=== PATIENT | female | born 1950 | race African-American/Black ===

== ENCOUNTER 2018-03-09 15:23 | Inpatient (IN) | payer OTHER ==
--- NOTE | 2018-03-09 17:26 | PDOC ---
History of Present Illness - General History Source: Patient Exam Limitations: No Limitations - History of Present Illness Initial Comments: 03/09/18 18:22 The patient is a 67 year old female with a significant past medical history of diabetes, glaucoma, and ulcers (6-7 years) who presents to the emergency department today for evaluation of bilateral lower extremity ulcers. The patient reports a 5 month history of unresolved right foot ulcer. She reports her ulcers usually heal well, but notes the ulcer on right foot has not healed even after intervention with antibiotics. Patient reports she noticed a mal odor and pus drainage 2 weeks ago prompting her to schedule an appointment with a specialist. The patient reports having her foot ulcers seen by Dr. Webster ([facility]) today and was advised to visit the emergency department for further evaluation. The patient denies pain to the aforementioned area, chest pain, shortness of breath, headache, and dizziness. Denies fever, chills, nausea, vomiting, and any bowel/urinary symptoms. Allergies: NKDA Social History: No reported alcohol, cigarette, or drug use. PCP: Dr. Tobias <Araceli Reyes - Last Filed: 03/09/18 18:45> <Siddhartha Duron - Last Filed: 03/12/18 10:47> - General Chief Complaint: Wound Stated Complaint: RT FOOT WOUND (WC SENT) Time Seen by Provider: 03/09/18 16:33 Past History <Araceli Reyes - Last Filed: 03/09/18 18:45> - Past Medical History COPD: No Diabetes: Yes - Suicide/Smoking/Psychosocial Hx Smoking History: Never smoked Have you smoked in the past 12 months: No Information on smoking cessation initiated: No Hx Alcohol Use: No Drug/Substance Use Hx: No Substance Use Type: None <Siddhartha Duron - Last Filed: 03/12/18 10:47> - Past Medical History Allergies/Adverse Reactions: Allergies Allergy/AdvReac Type Severity Reaction Status Date / Time No Known Allergies Allergy Verified 03/09/18 15:49 Home Medications: Ambulatory Orders Dorzolamide HCl [Trusopt] 10 ml 03/10/18 Empagliflozin [Jardiance] 10 mg PO DAILY 03/10/18 Gentamicin 0.3% Eye Drops - 1 drop OP HS 03/10/18 Glyburide 5 mg PO BID 03/10/18 Insulin Glargine,Hum.rec.anlog [Lantus] 35 units BID 03/10/18 Losartan Potassium 25 mg PO DAILY 03/10/18 Peg 400/Hypromellose/Glycerin [Artificial Tears Drops] 15 ml OP HS 03/10/18 Prednisolone 1% Ophthalmic [Pred Forte 1% -] 1 ml OP DAILY 03/10/18 Review of Systems - Review of Systems Able to Perform ROS?: Yes Comments:: A complete review of 10 out of 10 review of systems is taken and is negative apart from what is previously mentioned below and in the HPI. <Araceli Reyes - Last Filed: 03/09/18 18:45> *Physical Exam - Vital Signs Last Vital Signs Temp Pulse Resp BP Pulse Ox 98.6 F 80 16 131/68 98 03/09/18 15:40 03/09/18 15:40 03/09/18 15:40 03/09/18 15:40 03/09/18 15:40 - Physical Exam Comments: Vitals: Triage Vital signs reviewed General Appearance: no acute distress, well nourished well developed, Head: Atraumatic, normocephalic Eyes: (+)Injected right eye. Pupils equal reactive round, extraocular movement intact Neck: Supple Chest Wall: Nontender Cardiac: Regular rate and rhythm, no murmurs, no rubs, no gallops, Lungs: Clear to auscultation bilateral, good air movement bilaterally, Abdomen: Soft, nondistended, nontender to palpation Extremities: (+)3x3cm ulcer at base of right foot. (+)3cm ulcer at base of 4th digit of right foot. (+)small 2x3cm ulcer on left foot. Skin: Warm and dry, no rashes or lesions, no petechiae Psych: normal mood, normal affect <Araceli Reyes - Last Filed: 03/09/18 18:45> - Vital Signs Last Vital Signs Temp Pulse Resp BP Pulse Ox 98.6 F 80 16 131/68 98 03/09/18 15:40 03/09/18 15:40 03/09/18 15:40 03/09/18 15:40 03/09/18 15:40 <Siddhartha Duron - Last Filed: 03/12/18 10:47> ED Treatment Course - LABORATORY CBC & Chemistry Diagram: 03/10/18 06:50 03/10/18 06:50 <Siddhartha Duron - Last Filed: 03/12/18 10:47> Medical Decision Making - Medical Decision Making The patient is a 67 year old female with a significant past medical history of diabetes, glaucoma, and ulcers (6-7 years) who presents to the emergency department today for evaluation of bilateral lower extremity ulcers. Plan: Chest X-Ray Left Foot X-Ray Right Foot X-Ray EKG Labs <Araceli Reyes - Last Filed: 03/09/18 18:45> - Medical Decision Making Patient sent to the emergency department for admission for IV antibiotics for right foot diabetic ulcer Labs ESR CRP x-rays and broad-spectrum antibiotic have been ordered Labs are pending. Hospitalist aware of case. to update hospitalist when labs return <Siddhartha Duron - Last Filed: 03/12/18 10:47> *DC/Admit/Observation/Transfer - Attestations Scribe Attestion: Documentation prepared by Araceli Reyes, acting as electromedical equipment technician for Siddhartha Duron MD. <Araceli Reyes - Last Filed: 03/09/18 18:45> - Discharge Dispostion Decision to Admit order: Yes <Siddhartha Duron - Last Filed: 03/12/18 10:47> Diagnosis at time of Disposition: Diabetic foot ulcer Qualifiers: Diabetic foot ulcer location: other Diabetes mellitus type: type 1 Laterality: right Non-pressure ulcer stage: limited to breakdown of skin Qualified Code(s): E10.621 - Type 1 diabetes mellitus with foot ulcer - Discharge Dispostion Disposition: HOME Condition at time of disposition: Fair
[2018-03-09] MEDS ORDERED: VANCOMYCIN 1,000 MG in DEXTROSE 5%-WATER - 250 ML IVPB ONE (17:28)
[2018-03-09] MEDS ORDERED: PIPERACILLIN/TAZOB 3.375 GM 3.375 GM in DEXTROSE 5%-WATER - 50 ML IVPB ONE (17:28)
[2018-03-09] MEDS ORDERED: VANCOMYCIN 1 GRAM (PRE-DOCKED) 1,000 MG/250 ML BAG IVPB ONE (19:19)
--- NOTE | 2018-03-09 20:02 | PN ---
Teaching Attending Note Name of Resident: Jasbir Edward ATTENDING PHYSICIAN STATEMENT I saw and evaluated the patient. I reviewed the resident's note and discussed the case with the resident. I agree with the resident's findings and plan as documented. SUBJECTIVE: Patient is a 67 year old woman with a history of NIDDM, glaucoma, and leg ulcers (6-7 years) who presents to the ER for evaluation of bilateral lower extremity ulcers. The patient reports a 5 month history of unresolved right foot ulcer. She reports her ulcers usually heal well, but notes the ulcer on right foot has not healed even after intervention with antibiotics. Patient reports she noticed a foul odor and pus drainage 2 weeks ago prompting her to schedule an appointment with a specialist. The patient reports having her foot ulcers seen by Dr. Webster ([facility]) today and was advised to go to the ER for further evaluation. OBJECTIVE: Alert and in no distress. Vital Signs Period Temp Pulse Resp BP Sys/Ovalle Pulse Ox Last 24 Hr 98.6 F 80 16 131/68 98 HEENT: No Jaundice, right eye conjuctival injection, PERRLA, EOMI. Normocephalic , atraumatic. External ears are normal and hearing is grossly intact. No nasal discharge. Neck: Supple, nontender. No palpable adenopathy or thyromegaly. No JVD Chest: Good effort. Clear to auscultation and percussion. Heart: Regular. No S3, rub or murmur Abdomen: Not distended, soft, nontender and no HSM. No rebound or guarding. Normoactive bowel sounds. Ext: Peripheral pulses intact. No leg edema. Ulcer at base of right foot and at base of 4th digit of right foot. A smaller ulcer on left foot Skin: Warm and dry. No petechiae, rash or ecchymosis. Neuro: Alert. Oriented x3. CN 2-12 grossly intact. Sensation grossly intact in all four extremities and DTR are symmetric. Home Medications Medication Instructions Recorded Glipizide DAILY 03/09/18 Tradjenta DAILY 03/09/18 Abnormal Lab Results 03/09/18 03/09/18 20:36 20:36 Monocytes % 13.2 H Eosinophils % 5.2 H Chloride 109 H BUN 32 H Creatinine 1.5 H Random Glucose 179 H C-Reactive Protein 0.9 H ASSESSMENT AND PLAN: 1. Infected Diabetic Foot Ulcers - Will do wound culture and treat with IV Zosyn and Vancomycin pending culture results. Adjust vancomycin levels in view of elevated BUN/Cr - ?ANN - and DC vancomycin as soon as culture rules out MRSA . Foot xray and CXR are unrevealing. Consult ID and Podiatry. Seek podiatry opinion on whether MRI to rule out osteomyelitis is necessary. 2. DM - For now, we will hold the home diabetes drugs and implement sliding scale insulin regimen. Provide comprehensive diabetes care with patient teaching and counseling about the importance of euglycemia, eye care and foot care. 3. ANN? - Etiology unclear. Will consult nephrology and avoid nephrotoxic agents such as NSAIDS, aminoglycosides, contrast dyes and certain alternative medicine products. 4. DVT prophylaxis - Heparin 5000u sq tid. 5. Advance directives - Full code
[2018-03-09 20:50] LABS: EOS % 5.2 % (0-4.5); HEMATOCRIT 39.6 % (32.4-45.2); HEMOGLOBIN 13.1 GM/dL (10.7-15.3); LYMPH % 37.1 % (8-40); MCH 30.4 pg (25.7-33.7); MEAN CELL VOLUME 92.1 fl (80-96); MONO % 13.2 % (3.8-10.2); NEUT % 43.5 % (42.8-82.8); PLATELET COUNT 266 K/MM3 (134-434); RDW 14.3 % (11.6-15.6); WHITE BLOOD COUNT 4.3 K/mm3 (4.0-10.0)
[2018-03-09 21:17] LABS: ANION GAP 8 (8-16); BLOOD UREA NITROGEN 32 mg/dL (7-18); CALCIUM 9.2 mg/dL (8.5-10.1); CHLORIDE 109 mmol/L (98-107); CO2 24 mmol/L (21-32); CREATININE 1.5 mg/dL (0.55-1.02); GLUCOSE,RANDOM 179 mg/dL (74-106); SODIUM 141 mmol/L (136-145)
[2018-03-09 21:20] LABS: POTASSIUM 5.1 mmol/L (3.5-5.1)
[2018-03-10] MEDS ORDERED: VANCOMYCIN 1 GRAM (PRE-DOCKED) 1,000 MG/250 ML BAG IVPB ONE (00:36)
[2018-03-10] MEDS ORDERED: PIPERACILLIN/TAZOB 3.375 GM 3.375 GM/50 ML BAG IVPB ONE (00:36)
[2018-03-10] MEDS ORDERED: SODIUM CHLORIDE 1,000 ML IV SCH (01:30)
--- NOTE | 2018-03-10 01:52 | HP ---
CHIEF COMPLAINT: sent by PCP for foot ulcer with bad smell PCP: Podiatryst Dr. 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 Pt has been following with her observation nurse for her many episodes of foot ulcers. She generally sees him twice yearly, although with worsening of her foot ulcer, she's been seeing the doctor monthly for the past 5 months. Over the last week, pt states she noticed a foul odor emanating from the R foot. She went to see the doctor who advised her to come to the ED. She denies pain, fever, chills, nausea, vomiting, diarrhea, CP, SOB. Pt had a R eye glaucoma surg recently. She had a "tube" place in the eye Thursday and had some laser therapy. She had her eye patch removed today. ER course was notable for: (1) VSS, no leukocytosis, Composition Worker 1.5 (2) CXR, b/l foot XRay unremarkable pending official read (3) Vanc, Zosyn given in ED Recent Travel: Denies PAST MEDICAL HISTORY: DM, mult. foot ulcers, glaucoma PAST SURGICAL HISTORY: Glaucoma of R eye on Thu Social History: Smokin pack/year, quit many years ago Alcohol: denies Drugs: denies Family History: denies Allergies No Known Allergies Allergy (Verified 03/09/18 15:49) HOME MEDICATIONS: Home Medications Medication Instructions Recorded Empagliflozin [Jardiance] 10 mg PO DAILY 03/10/18 Gentamicin 0.3% Eye Drops - 1 drop OP HS 03/10/18 Glyburide 5 mg PO BID 03/10/18 Losartan Potassium 25 mg PO DAILY 03/10/18 Peg 400/Hypromellose/Glycerin 15 ml OP HS 03/10/18 [Artificial Tears Drops] Prednisolone 1% Ophthalmic [Pred 1 ml OP DAILY 03/10/18 Forte 1% -] REVIEW OF SYSTEMS CONSTITUTIONAL: Absent: fever, chills, diaphoresis, generalized weakness, malaise, loss of appetite, weight change HEENT: Absent: rhinorrhea, nasal congestion, throat pain, throat swelling, difficulty swallowing, mouth swelling, ear pain, eye pain, visual changes CARDIOVASCULAR: Absent: chest pain, syncope, palpitations, irregular heart rate, lightheadedness , peripheral edema RESPIRATORY: Absent: cough, shortness of breath, dyspnea with exertion, orthopnea, wheezing, stridor, hemoptysis GASTROINTESTINAL: Absent: abdominal pain, abdominal distension, nausea, vomiting, diarrhea, constipation, melena, hematochezia GENITOURINARY: Absent: dysuria, frequency, urgency, hesitancy, hematuria, flank pain, genital pain MUSCULOSKELETAL: Absent: myalgia, arthralgia, joint swelling, back pain, neck pain SKIN: b/l plantar ulcers. R with foul smell and mild drainage. Absent: rash, itching, pallor HEMATOLOGIC/IMMUNOLOGIC: Absent: easy bleeding, easy bruising, lymphadenopathy, frequent infections ENDOCRINE: Absent: unexplained weight gain, unexplained weight loss, heat intolerance, cold intolerance NEUROLOGIC: Absent: headache, focal weakness or paresthesias, dizziness, unsteady gait, seizure, mental status changes, bladder or bowel incontinence PSYCHIATRIC: Absent: anxiety, depression, suicidal or homicidal ideation, hallucinations. PHYSICAL EXAMINATION Vital Signs - 24 hr 03/09/18 03/09/18 15:40 22:46 Temperature 98.6 F Pulse Rate 80 Pulse Rate [ 86 Radial] Respiratory 16 18 Rate Blood Pressure 131/68 Blood Pressure 132/60 [Left Arm] O2 Sat by Pulse 98 99 Oximetry (%) Gen: Comfortable appearing, NAD HEENT: NCAT, PERRL, EOMI, no AV nicking/flame hemorrhage noted on fundoscopy Neck: supple, no jvd, no bruits Cardio: rrr, norm s1s2, no mrg Pulm: cta b/l Abd: soft, nontender, non distended, pos bs Ext: b/l 1+ DP, b/l distal medial plantar ulcers at distal metatarsal head. R side with foul smell and drainage Neuro: strength, sensation, reflexes intact throughout. No focal deficits. Laboratory Results - last 24 hr 03/09/18 03/09/18 20:36 20:36 WBC 4.3 RBC 4.30 Hgb 13.1 Hct 39.6 MCV 92.1 MCH 30.4 MCHC 33.0 RDW 14.3 Plt Count 266 MPV 9.0 Absolute Neuts (auto) 1.9 Neutrophils % 43.5 Lymphocytes % 37.1 Monocytes % 13.2 H Eosinophils % 5.2 H Basophils % 1.0 Nucleated RBC % 0 ESR Cancelled Sodium 141 Potassium 5.1 Chloride 109 H Carbon Dioxide 24 Anion Gap 8 BUN 32 H Creatinine 1.5 H Creat Clearance w eGFR 34.43 Random Glucose 179 H Calcium 9.2 C-Reactive Protein 0.9 H ASSESSMENT/PLAN: Pt is a 67 y/o F with PMH DM and many foot ulcers who presented to ED with chronic foot ulcer recently infected. Pt is afebrile with no leukocytosis. XR pending official read. Pt is admitted for nonhealing DM foot ulcer, which failed out pt ABx. #DM foot ulcer -failed out pt Abx (pt states she stopped her cipro 500 bid on her own because she felt it wasn't helping. She was counseled about not stopping meds without speaking to her doctor) -Vanc/Zosyn in ED -Podiatry consult -ID consult -? consider alternative to Vanco considering absence of documented MRSA and given Composition Worker 1.5 -BCx, wound Cx pending -f/u b/l foot XR -No clinical signs of infection. Consider MRI if concern for OM #?ANN vs CKD -Composition Worker 1.5 -no prior value for comparison -f/u morning labs following fluids #DM -per pt, A1C 6.3 1 month ago -holding oral antihyperglycemics -BGM ACHS -ISS ACHS #Glaucoma -recent surg on R eye -c/w home eye drops as pt was instructed by ophthomologist #FEN -NS -lytes wnl -NPO #PPx -Hep SubQ #Dispo -Med Surg for infected DM foot ulcer Jasbir Edward MD PGY-2 IM Visit type - Emergency Visit Emergency Visit: Yes ED Registration Date: 03/09/18 Care time: The patient presented to the Emergency Department on the above date and was hospitalized for further evaluation of their emergent condition. - New Patient This patient is new to me today: Yes Date on this admission: 03/10/18 - Critical Care Critical Care patient: No Hospitalist Screening - Colonoscopy Questionnaire Colonoscopy Questionnaire: Colonoscopy Questionnaire - Patient: 50 - 75 years old and never had a screening colonoscopy: Unknown History of colon or rectal polyps, or CA: Unknown History of IBD, Crohn's disease or UC: Unknown History of abdominal radiation therapy as a child: Unknown - Relative: 1 with colon or rectal CA, or polyps at age 60 or younger: Unknown Colon or rectal CA diagnosed at age 45 or younger: Unknown Multiple relatives with colon or rectal CA: Unknown - Outcome: Screening Result: Negative Screen
[2018-03-10 03:27] VITALS: BMI 27.1
[2018-03-10] MEDS: HEPARIN NA (PORCINE) 5,000 UNITS/ML 1ML VIAL SQ SCH ×3 (03:46→17:54)
[2018-03-10] MEDS: INSULIN SLIDING SCALE (NOVOLOG) 1 VIAL SQ SCH ×3 (05:59→17:31)
[2018-03-10 08:34] LABS: BASO % 0.9 % (0-2.0); EOS % 5.3 % (0-4.5); HEMATOCRIT 37.8 % (32.4-45.2); HEMOGLOBIN 12.3 GM/dL (10.7-15.3); LYMPH % 40.2 % (8-40); MCH 30.1 pg (25.7-33.7); MCHC 32.7 g/dl (32.0-36.0); MEAN PLT VOLUME 8.6 fl (7.5-11.1); MONO % 12.1 % (3.8-10.2); NEUT % 41.5 % (42.8-82.8); PLATELET COUNT 235 K/MM3 (134-434); RDW 13.9 % (11.6-15.6)
[2018-03-10 08:39] LABS: INR 0.88 (0.82-1.09)
[2018-03-10 08:42] LABS: ACTIVATED PTT 34.6 SECONDS (25.2-36.5)
[2018-03-10 08:50] LABS: ALBUMIN 3.4 g/dl (3.4-5.0); ANION GAP 9 (8-16); BLOOD UREA NITROGEN 34 mg/dL (7-18); CALCIUM 8.9 mg/dL (8.5-10.1); CHLORIDE 112 mmol/L (98-107); CO2 23 mmol/L (21-32); GLUCOSE,RANDOM 125 mg/dL (74-106); MAGNESIUM 2.6 mg/dL (1.8-2.4); POTASSIUM 4.4 mmol/L (3.5-5.1); SODIUM 144 mmol/L (136-145)
[2018-03-10 08:54] LABS: ALK PHOS 122 U/L (45-117); BILIRUBIN,TOTAL 0.3 mg/dL (0.2-1.0); CREATININE 1.7 mg/dL (0.55-1.02); PHOSPHOROUS 3.8 mg/dL (2.5-4.9); SGOT/AST 16 U/L (15-37); SGPT/ALT 45 U/L (12-78); TOT PROT 6.8 g/dl (6.4-8.2)
--- NOTE | 2018-03-10 09:16 | PN ---
Progress Note (short form) - Note Progress Note: ID Full note dictated Chronic plantar ulcer bilaterally says draining pus though I do not see this now Selected Entries 03/10/18 07:04 Temperature 98.3 F Pulse Rate 76 Blood Pressure 137/67 Laboratory Tests 03/09/18 03/09/18 03/10/18 20:36 20:36 06:50 WBC 4.0 Hgb 12.3 Hct 37.8 Plt Count 235 ESR Cancelled BUN Creatinine Creat Clearance w eGFR C-Reactive Protein 0.9 H 03/10/18 06:50 WBC Hgb Hct Plt Count ESR BUN 34 H Creatinine 1.7 H Creat Clearance w eGFR 29.80 C-Reactive Protein Advsise Zosyn until seen by podiatry then consider po Augmentin Problem List - Problems (1) Diabetic foot ulcer Code(s): E11.621 - TYPE 2 DIABETES MELLITUS WITH FOOT ULCER; L97.509 - NON- PRESSURE CHRONIC ULCER OTH PRT UNSP FOOT W UNSP SEVERITY Qualifiers: Diabetic foot ulcer location: other Diabetes mellitus type: type 1 Laterality: right Non-pressure ulcer stage: limited to breakdown of skin Qualified Code(s): E10.621 - Type 1 diabetes mellitus with foot ulcer; L97.511 - Non-pressure chronic ulcer of other part of right foot limited to breakdown of skin
[2018-03-10] MEDS ORDERED: DEXTROSE 5%-WATER - 50 ML IVPB ONE ×2 (10:00→14:43)
[2018-03-10] MEDS ORDERED: PIPERACILLIN/TAZOBACTAM 2.25 GM VIAL IVPB ONE ×2 (10:00→14:42)
[2018-03-10] MEDS ORDERED: prednisoLONE ACETATE 1% OPHTH SUSP 5 ML BOTTLE OU SCH (10:00)
[2018-03-10] MEDS: PIPERACILLIN/TAZOB 2.25 GM 2.25 GM in DEXTROSE 5%-WATER - 50 ML IVPB SCH ×2 (10:02→14:46)
--- NOTE | 2018-03-10 10:03 | CONS ---
DATE OF CONSULTATION: DATE OF DICTATION: 03/10/2018 INFECTIOUS DISEASE CONSULTATION HISTORY OF PRESENT ILLNESS: This is a 67-year-old diabetic female whom I am asked to see for evaluation of chronic plantar ulcers of both feet. She is admitted now with a history of following her airway controller who debrides the ulcers intermittently over the last several months. More recently she noted some foul bloody purulent drainage from the right plantar ulcer and was referred to the emergency room. She denied any fever or chills, and I am asked to see her for further evaluation. Her x-ray does not show evidence of osteomyelitis on plain film, and her CRP is normal. PAST MEDICAL HISTORY: Includes [id number] diabetes, glaucoma, chronic plantar ulcers for many years, recent right eye surgery for glaucoma. MEDICATIONS: Cozaar, Pred Forte, insulin, glipizide, Tradjenta. ALLERGIES: None known. SOCIAL HISTORY: Denies smoking. No history of substance abuse. HIV status unknown. FAMILY HISTORY: Noncontributory. REVIEW OF SYSTEMS: Respiratory: No cough or shortness of breath. Cardiac: No chest pain, palpitations or syncope. Gastrointestinal: No nausea, vomiting, diarrhea or weight loss. Genitourinary: No dysuria, hematuria or urinary frequency. PHYSICAL EXAMINATION: General: A well-nourished appearing woman in no acute distress. Vital Signs: Temperature on admission 98.6, pulse 80, respirations 16, blood pressure 130/68. O2 oximetry 98%. HEENT: Injection of the right eye from recent surgery, less than a week ago. Neck: Supple, without adenopathy. Lungs: Clear to percussion and auscultation. Heart: S1, S2. Regular rhythm, without audible gallop or murmur. Abdomen: Positive. Soft, nontender. No organomegaly. Extremities: A 3 x 3-cm ulcer at the plantar aspect of the right foot and another ulcer at the base of the 4th digit on the right foot. A small 2 x 3 ulcer noted on the left foot. No purulence, cellulitis or fluctuance evident. No tenderness present. No drainage noted. DIAGNOSTIC STUDIES: White count 4.3, hemoglobin 13.1, platelets 266. Creatinine 1.7, BUN 34, CRP 0.9, albumin 3.4. X-ray of the left foot shows bunion formation MTP joint, arthritic changes. No evidence of osteomyelitis. ASSESSMENT: Chronic ulcers of the right plantar area. Purulent drainage reported, although none seen now. Clearly she is not toxic or have criteria for sepsis. PLAN: Will await airway controller regarding the need for further debridement of an ulcer. I will empirically treat her based on the history of purulent drainage, although I do not see drainage at this time. Two sets of blood cultures thus far no growth. Possible consideration of a switch to an oral antibiotic, Augmentin, in the next 24 to 48 hours, but will await podiatric consult before making any change. ADY ABDUL M.D. [id number]
[2018-03-10] MEDS: LOSARTAN POTASSIUM 25 MG TABLET PO SCH ×2 (10:09→10:23)
--- NOTE | 2018-03-10 10:57 | CONSULT ---
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 Wounds for months . No tx. vss, Tmax 98.3 wbc=4.0, +grade 3 wounds x 2 right and 1 left, +taryn drainage sub 1 right, - erythema b/l, wound b/l grade 3 r/o om Santyl dressing change b/l feet. MRI b/l feet. HIV testing to be ordered. Will follow. Post op shoe b/l. ESR, CRP, Hgba1c ordered.
[2018-03-10] MEDS ORDERED: COLLAGENASE CLOSTRIDIUM HIST. 30 GRAMS TUBE TP SCH (11:00)
--- NOTE | 2018-03-10 11:32 | PN ---
Progress Note (short form) - Note Progress Note: 67yo F h/o Rt diabetic foot ulcer, sent to ED for evaluationg of infection by Podiatry Dr. Lamar. Pt denies any history of vascular problems. Last Vital Signs Temp Pulse Resp BP Pulse Ox 98.3 F 77 148 H 146/74 96 03/10/18 07:04 03/10/18 10:16 03/10/18 10:16 03/10/18 10:16 03/10/18 02:53 CBC, BMP 03/10/18 06:50 03/10/18 06:50 PE: Gen: A&O x3 Resp: breathing comfortably Ext: Rt foot shows some eschar on plantar aspect of distal foot, with mild erythema. No edema, +2 pedal pulse Problem List - Problems (1) Diabetic foot ulcer Assessment/Plan: Plan -pt appears to have adequate blood flow, no need for vascular intervention at this time. -continue abx as per ID -santyl dressing/ podiatry care recommendations -follow up with wound care clinic as outpatient Code(s): E11.621 - TYPE 2 DIABETES MELLITUS WITH FOOT ULCER; L97.509 - NON- PRESSURE CHRONIC ULCER OTH PRT UNSP FOOT W UNSP SEVERITY Qualifiers: Diabetic foot ulcer location: other Diabetes mellitus type: type 1 Laterality: right Non-pressure ulcer stage: limited to breakdown of skin Qualified Code(s): E10.621 - Type 1 diabetes mellitus with foot ulcer; L97.511 - Non-pressure chronic ulcer of other part of right foot limited to breakdown of skin
--- NOTE | 2018-03-10 12:42 | EKG ---
Test Reason : Blood Pressure : / mmHG Vent. Rate : 085 BPM Atrial Rate : 085 BPM P-R Int : 156 ms QRS Dur : 070 ms QT Int : 370 ms P-R-T Axes : 039 012 079 degrees QTc Int : 440 ms NORMAL SINUS RHYTHM NORMAL ECG NO PREVIOUS ECGS AVAILABLE Confirmed by GEO SHAVER, LESVIA ([id number]) on 03/10/2018 12:41:44 PM Referred By: Confirmed By:LESVIA GUARDADO MD
[2018-03-10 14:56] VITALS: BP 150/72; PULSE 79; TEMP 98.7
[2018-03-10] MEDS ORDERED: ACETAMINOPHEN 325 MG TABLET (FP) PO PRN (16:14)
[2018-03-10] MEDS ORDERED: INSULIN (NOVOLOG) ASPART 100 UNITS/ML 10ML VIAL ONE (18:13)
[2018-03-10] MEDS ORDERED: PT OWN MED DRAWER 7, Y5N ONE (18:13)
--- NOTE | 2018-03-10 18:38 | PN ---
Teaching Attending Note Name of Resident: Merlin Hutchison ATTENDING PHYSICIAN STATEMENT I saw and evaluated the patient. I reviewed the resident's note and discussed the case with the resident. I agree with the resident's findings and plan as documented with exceptions below. SUBJECTIVE: Patient seen and examined. No fevers, chills, new foot pain or new concerns. OBJECTIVE: Vital Signs Period Temp Pulse Resp BP Sys/Ovalle Pulse Ox Last 24 Hr 97.7 F-98.7 F 76-86 17-148 132-150/60-74 96-99 Intake & Output 03/07/18 03/08/18 03/09/18 03/10/18 23:59 23:59 23:59 23:59 Intake Total 100 Balance 100 Weight 170 lb 173 lb General; sitting in bed in no acute distress Extremities: Right foot - 2 superficial ulcers with surrounding skin thickening ball of right foot, no surrounding erythema/swelling or discharge, Left foot - one ulcer on ball of foot with surrounding skin thickening, no erythema/discharge or purulence Home Medications Medication Instructions Recorded Dorzolamide HCl [Trusopt] 10 ml 03/10/18 Empagliflozin [Jardiance] 10 mg PO DAILY 03/10/18 Gentamicin 0.3% Eye Drops - 1 drop OP HS 03/10/18 Glyburide 5 mg PO BID 03/10/18 Insulin Glargine,Hum.rec.anlog 35 units BID 03/10/18 [Lantus] Losartan Potassium 25 mg PO DAILY 03/10/18 Peg 400/Hypromellose/Glycerin 15 ml OP HS 03/10/18 [Artificial Tears Drops] Prednisolone 1% Ophthalmic [Pred 1 ml OP DAILY 03/10/18 Forte 1% -] Active Medications Acetaminophen (Tylenol -) 650 mg PO Q4H PRN PRN Reason: PAIN LEVEL 1-5 Last Admin: 03/10/18 16:31 Dose: 650 mg Collagenase (Santyl -) 1 applic TP DAILY JEEVAN; Protocol Last Admin: 03/10/18 13:42 Dose: 1 units Gentamicin Sulfate (Gentamicin 0.3% Eye Drops -) 1 drop OP HS JEEVAN Heparin Sodium (Porcine) (Heparin -) 5,000 unit SQ Q8H-IV JEEVAN Last Admin: 03/10/18 17:54 Dose: 5,000 unit Sodium Chloride (Normal Saline -) 1,000 mls @ 42 mls/hr IV ASDIR JEEVAN Last Admin: 03/10/18 01:33 Dose: 42 mls/hr Piperacillin Sod/Tazobactam (Sod 2.25 gm/ Dextrose) 50 mls @ 100 mls/hr IVPB Q6H-IV JEEVAN; Protocol Last Admin: 03/10/18 14:46 Dose: 100 mls/hr Insulin Aspart (Novolog Vial Sliding Scale -) 1 vial SQ ACHS JEEVAN; Protocol Last Admin: 03/10/18 17:31 Dose: 2 unit Losartan Potassium (Cozaar -) 25 mg PO DAILY JEEVAN Last Admin: 03/10/18 10:23 Dose: Not Given Non-Formulary Medication (Peg 400/Hypromellose/Glycerin [Artificial Tears Drops] ) 15 ml OP HS JEEVAN Prednisolone Acetate (Pred Forte 1% -) 1 drop OU DAILY JEEVAN Last Admin: 03/10/18 10:09 Dose: 1 drop Laboratory Results - last 24 hr 03/09/18 03/09/18 03/10/18 20:36 20:36 05:46 WBC 4.3 RBC 4.30 Hgb 13.1 Hct 39.6 MCV 92.1 MCH 30.4 MCHC 33.0 RDW 14.3 Plt Count 266 MPV 9.0 Absolute Neuts (auto) 1.9 Neutrophils % 43.5 Lymphocytes % 37.1 Monocytes % 13.2 H Eosinophils % 5.2 H Basophils % 1.0 Nucleated RBC % 0 ESR Cancelled PT with INR INR PTT (Actin FS) Sodium 141 Potassium 5.1 Chloride 109 H Carbon Dioxide 24 Anion Gap 8 BUN 32 H Creatinine 1.5 H Creat Clearance w eGFR 34.43 POC Glucometer 330 Random Glucose 179 H Calcium 9.2 Phosphorus Magnesium Total Bilirubin AST ALT Alkaline Phosphatase C-Reactive Protein 0.9 H Total Protein Albumin HIV 1&2 Antibody Screen HIV P24 Antigen Blood Type Antibody Screen 03/10/18 03/10/18 03/10/18 06:50 06:50 06:50 WBC 4.0 RBC 4.10 Hgb 12.3 Hct 37.8 MCV 92.0 MCH 30.1 MCHC 32.7 RDW 13.9 Plt Count 235 MPV 8.6 Absolute Neuts (auto) 1.7 Neutrophils % 41.5 L Lymphocytes % 40.2 H Monocytes % 12.1 H Eosinophils % 5.3 H Basophils % 0.9 Nucleated RBC % 0 ESR PT with INR 10.00 INR 0.88 PTT (Actin FS) 34.6 Sodium 144 Potassium 4.4 Chloride 112 H Carbon Dioxide 23 Anion Gap 9 BUN 34 H Creatinine 1.7 H Creat Clearance w eGFR 29.80 POC Glucometer Random Glucose 125 H Calcium 8.9 Phosphorus 3.8 Magnesium 2.6 H Total Bilirubin 0.3 AST 16 ALT 45 Alkaline Phosphatase 122 H C-Reactive Protein 0.7 H Total Protein 6.8 Albumin 3.4 HIV 1&2 Antibody Screen HIV P24 Antigen Blood Type Antibody Screen 03/10/18 03/10/18 03/10/18 06:50 09:58 12:00 WBC RBC Hgb Hct MCV MCH MCHC RDW Plt Count MPV Absolute Neuts (auto) Neutrophils % Lymphocytes % Monocytes % Eosinophils % Basophils % Nucleated RBC % ESR PT with INR INR PTT (Actin FS) Sodium Potassium Chloride Carbon Dioxide Anion Gap BUN Creatinine Creat Clearance w eGFR POC Glucometer Random Glucose Calcium Phosphorus Magnesium Total Bilirubin AST ALT Alkaline Phosphatase C-Reactive Protein Cancelled Total Protein Albumin HIV 1&2 Antibody Screen HIV P24 Antigen Blood Type B POSITIVE B POSITIVE Antibody Screen Negative 03/10/18 03/10/18 03/10/18 12:00 12:13 17:24 WBC RBC Hgb Hct MCV MCH MCHC RDW Plt Count MPV Absolute Neuts (auto) Neutrophils % Lymphocytes % Monocytes % Eosinophils % Basophils % Nucleated RBC % ESR PT with INR INR PTT (Actin FS) Sodium Potassium Chloride Carbon Dioxide Anion Gap BUN Creatinine Creat Clearance w eGFR POC Glucometer 91 190 Random Glucose Calcium Phosphorus Magnesium Total Bilirubin AST ALT Alkaline Phosphatase C-Reactive Protein Total Protein Albumin HIV 1&2 Antibody Screen Negative HIV P24 Antigen Negative Blood Type Antibody Screen ASSESSMENT AND PLAN: 67 yof with glaucoma, Diabetic foot ulcers, sent in with concerns for infected diabetic leg wounds -Diabetic left ulcers with infection, r/o osteomyelitis -ANN 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 MRI LE, zosyn, cultures as available, wound care. Dispo planning pending above.
--- NOTE | 2018-03-10 21:03 | DS ---
Physical Exam: SUBJECTIVE: Patient seen and examined. Went to sleep late last night. Had surgery for removal of "tube" from right eye. No acute events over night. Pt. denied chest pain, SOB, fever or chills. OBJECTIVE: Vital Signs Period Temp Pulse Resp BP Sys/Ovalle Pulse Ox Last 24 Hr 97.7 F-98.7 F 76-86 17-148 132-150/60-74 96-99 PHYSICAL EXAM GENERAL: The patient is awake, alert, and fully oriented, in no acute distress. HEAD: Normal with no signs of trauma. EYES: PERRL in left eye, right eye pupil was dilated with sluggish accomodation to light, extraocular movements intact, sclera anicteric, Right eye had red conjunctiva medially. Left eye had clear conjunctiva. LUNGS: Breath sounds equal, clear to auscultation bilaterally, no wheezes, no crackles, no accessory muscle use. HEART: Regular rate and rhythm, S1, S2 without murmur, rub or gallop. EXTREMITIES: LE: 2+ pulses, cool, hairless, pressure ulcers b/l under pressure points of feet, R>L. No purulence or discharge seen, no malodor, no edema. NEUROLOGICAL: Cranial nerves II through IX grossly intact. Normal speech PSYCH: Normal mood, normal affect. LABS Laboratory Results - last 24 hr 03/09/18 03/09/18 03/10/18 20:36 20:36 05:46 WBC 4.3 RBC 4.30 Hgb 13.1 Hct 39.6 MCV 92.1 MCH 30.4 MCHC 33.0 RDW 14.3 Plt Count 266 MPV 9.0 Absolute Neuts (auto) 1.9 Neutrophils % 43.5 Lymphocytes % 37.1 Monocytes % 13.2 H Eosinophils % 5.2 H Basophils % 1.0 Nucleated RBC % 0 ESR Cancelled PT with INR INR PTT (Actin FS) Sodium 141 Potassium 5.1 Chloride 109 H Carbon Dioxide 24 Anion Gap 8 BUN 32 H Creatinine 1.5 H Creat Clearance w eGFR 34.43 POC Glucometer 330 Random Glucose 179 H Calcium 9.2 Phosphorus Magnesium Total Bilirubin AST ALT Alkaline Phosphatase C-Reactive Protein 0.9 H Total Protein Albumin Urine Osmolality Ur Random Sodium Ur Random Potassium Ur Random Chloride Urine Creatinine HIV 1&2 Antibody Screen HIV P24 Antigen Blood Type Antibody Screen 07/03/10/18 03/10/18 06:50 06:50 06:50 WBC 4.0 RBC 4.10 Hgb 12.3 Hct 37.8 MCV 92.0 MCH 30.1 MCHC 32.7 RDW 13.9 Plt Count 235 MPV 8.6 Absolute Neuts (auto) 1.7 Neutrophils % 41.5 L Lymphocytes % 40.2 H Monocytes % 12.1 H Eosinophils % 5.3 H Basophils % 0.9 Nucleated RBC % 0 ESR PT with INR 10.00 INR 0.88 PTT (Actin FS) 34.6 Sodium 144 Potassium 4.4 Chloride 112 H Carbon Dioxide 23 Anion Gap 9 BUN 34 H Creatinine 1.7 H Creat Clearance w eGFR 29.80 POC Glucometer Random Glucose 125 H Calcium 8.9 Phosphorus 3.8 Magnesium 2.6 H Total Bilirubin 0.3 AST 16 ALT 45 Alkaline Phosphatase 122 H C-Reactive Protein 0.7 H Total Protein 6.8 Albumin 3.4 Urine Osmolality Ur Random Sodium Ur Random Potassium Ur Random Chloride Urine Creatinine HIV 1&2 Antibody Screen HIV P24 Antigen Blood Type Antibody Screen 03/10/18 03/10/18 03/10/18 06:50 09:58 12:00 WBC RBC Hgb Hct MCV MCH MCHC RDW Plt Count MPV Absolute Neuts (auto) Neutrophils % Lymphocytes % Monocytes % Eosinophils % Basophils % Nucleated RBC % ESR PT with INR INR PTT (Actin FS) Sodium Potassium Chloride Carbon Dioxide Anion Gap BUN Creatinine Creat Clearance w eGFR POC Glucometer Random Glucose Calcium Phosphorus Magnesium Total Bilirubin AST ALT Alkaline Phosphatase C-Reactive Protein Cancelled Total Protein Albumin Urine Osmolality Ur Random Sodium Ur Random Potassium Ur Random Chloride Urine Creatinine HIV 1&2 Antibody Screen HIV P24 Antigen Blood Type B POSITIVE B POSITIVE Antibody Screen Negative 03/10/18 03/10/18 03/10/18 12:00 12:13 16:15 WBC RBC Hgb Hct MCV MCH MCHC RDW Plt Count MPV Absolute Neuts (auto) Neutrophils % Lymphocytes % Monocytes % Eosinophils % Basophils % Nucleated RBC % ESR PT with INR INR PTT (Actin FS) Sodium Potassium Chloride Carbon Dioxide Anion Gap BUN Creatinine Creat Clearance w eGFR POC Glucometer 91 Random Glucose Calcium Phosphorus Magnesium Total Bilirubin AST ALT Alkaline Phosphatase C-Reactive Protein Total Protein Albumin Urine Osmolality 682 Ur Random Sodium 85 Ur Random Potassium 26.2 Ur Random Chloride 91 Urine Creatinine HIV 1&2 Antibody Screen Negative HIV P24 Antigen Negative Blood Type Antibody Screen 03/10/18 03/10/18 16:15 17:24 WBC RBC Hgb Hct MCV MCH MCHC RDW Plt Count MPV Absolute Neuts (auto) Neutrophils % Lymphocytes % Monocytes % Eosinophils % Basophils % Nucleated RBC % ESR PT with INR INR PTT (Actin FS) Sodium Potassium Chloride Carbon Dioxide Anion Gap BUN Creatinine Creat Clearance w eGFR POC Glucometer 190 Random Glucose Calcium Phosphorus Magnesium Total Bilirubin AST ALT Alkaline Phosphatase C-Reactive Protein Total Protein Albumin Urine Osmolality Ur Random Sodium Ur Random Potassium Ur Random Chloride Urine Creatinine 77.1 HIV 1&2 Antibody Screen HIV P24 Antigen Blood Type Antibody Screen HOSPITAL COURSE: Date of Admission:03/10/18 Date of Discharge: 03/10/18 Pre-hospital course: Pt is a 67 y/o F with PMH DM and many diabetic foot ulcers which generally resolved with PO Abx who presented to her [employer] Ad[employer] Analyst with complaint of her R foot ulcer developing a bad smell. Pt has been following with her automotive service management teacher for her many episodes of foot ulcers. She generally sees him twice yearly, although with worsening of her foot ulcer, she's been seeing the doctor monthly for the past 5 months. Over the last week, pt states she noticed a foul odor emanating from the R foot. She went to see the doctor who advised her to come to the ED. She denies pain, fever, chills, nausea, vomiting , diarrhea, CP, SOB. Pt had a R eye glaucoma surg recently. She had a "tube" place in the eye Thursday and had some laser therapy. She had her eye patch removed today. Hospital Course: Pt. was admitted d/t failed outpatient PO Abx. B/l LE X-rays did not show Osteomyelitis. MRIs were ordered. Pt.'s eye developed increased pain and lacrimation with decreasing visual acuity. Pt. was concerned about intraocular pressure. Pt. called her opthamologist who requested that the Pt. be seen by an opthamologist here. Called on-call opthamologist, Dr. Vasquez, who agreed to see patient, however would be unable to assess intraocular pressure without the appropriate device which the hospital did not have. Discussed findings and conversations with the patient. Pt. expressed desire to have eye assessed and planned to leave AMA to do so. Discussed with patient the risks of leaving hospital including but not limited to sepsis, amputation and . Pt. relayed risks and planned on having the foot ulcers assessed promptly after getting her right eye assessed. Pt. left to go to [facility] while Dr. Orlando was on hold with [facility] to help coordinate care for the Pt. Minutes to complete discharge: 45 Discharge Summary Reason For Visit: DIABETIC FOOT ULCER Condition: Fair - Instructions Referrals: Gloria Tobias MD [Primary Care Provider] - Disposition: AGAINST MEDICAL ADVICE - Home Medications Comprehensive Discharge Medication List: Ambulatory Orders Dorzolamide HCl [Trusopt] 10 ml 03/10/18 Empagliflozin [Jardiance] 10 mg PO DAILY 03/10/18 Gentamicin 0.3% Eye Drops - 1 drop OP HS 03/10/18 Glyburide 5 mg PO BID 03/10/18 Insulin Glargine,Hum.rec.anlog [Lantus] 35 units BID 03/10/18 Losartan Potassium 25 mg PO DAILY 03/10/18 Peg 400/Hypromellose/Glycerin [Artificial Tears Drops] 15 ml OP HS 03/10/18 Prednisolone 1% Ophthalmic [Pred Forte 1% -] 1 ml OP DAILY 03/10/18 This patient is new to me today: No Emergency Visit: Yes ED Registration Date: 03/10/18 Care time: The patient presented to the Emergency Department on the above date and was hospitalized for further evaluation of their emergent condition. Critical Care patient: No - Discharge Referral Referred to [facility] No
[2018-03-10] MEDS ORDERED: GENTAMICIN SULFATE 0.3% OPHTHALMIC (EYE DROPS) 5ML BOTTLE OP SCH (22:00)
== END 2018-03-10 20:10 | disposition left against medical advice (07) | DRG 639 ==
LOC: JER 15:23 → JERBED 20:53 → OBSVTOIN 03-10 01:17 → J8W 03-10 02:54
PROVIDERS: ADMIT Internal Medicine; ATTEND Hospitalist
DX: E11.621 Type 2 diabetes mellitus with foot ulcer (principal); H40.9 Unspecified glaucoma; Z79.4 Long term (current) use of insulin
CPT/HCPCS: 36415; 71045-TC-FY; 73630-TC-LT; 73630-TC-RT-FY; 80048; 80053; 82436; 82570; 82962; 83735; 83935; 84100; 84133; 84300; 85025; 85610; 85730; 86140; 86850; 86900; 86901; 87040; 87070; 87205; 87389; 93005; 93010; 99282-25; G0378; G0463-25; J1644; J7030